=== PATIENT | female | born 1950 | race Two or more races ===

== ENCOUNTER 2017-11-18 08:48 | Outpatient (CLI) | payer OTHER ==
[~2017-11-18 08:48] MED LIST: CATAFLAM 50 MG PO; DEPO-MEDRO40 MG/1 ML IJ; DICLOFENAC POTA50 MG PO; NORVASC5 MG; SYNTHROID88 MCG
== END 2017-11-18 12:13 | disposition home or self-care (01) ==
LOC: SONOGRAMA 08:48
DX: E07.89 Other specified disorders of thyroid (principal); E89.0 Postprocedural hypothyroidism

== ENCOUNTER → 2018-12-01 | Outpatient (CLI) | payer OTHER | END | disposition home or self-care (01) | LOC: RAD 501 10:32 | DX: R05 Cough (principal); I11.9 Hypertensive heart disease without heart failure; E78.00 Pure hypercholesterolemia, unspecified; E03.8 Other specified hypothyroidism; Z12.83 Encounter for screening for malignant neoplasm of skin ==

== ENCOUNTER 2020-06-26 08:43 | Outpatient (CLI) | payer OTHER | END 2020-06-26 08:56 | disposition home or self-care (01) | LOC: NUCLEAR 08:43 | PROVIDERS: ATTEND Internal Medicine Cardiovascular Disease | DX: R09.89 Other specified symptoms and signs involving the circulatory and respiratory systems (principal); I65.21 Occlusion and stenosis of right carotid artery; I11.9 Hypertensive heart disease without heart failure; E03.8 Other specified hypothyroidism; E78.00 Pure hypercholesterolemia, unspecified; R01.1 Cardiac murmur, unspecified; I34.8 Other nonrheumatic mitral valve disorders ==

== ENCOUNTER 2020-08-15 10:51 | Outpatient (CLI) | payer OTHER | END 2020-08-15 10:58 | disposition home or self-care (01) | LOC: RAD 10:51 | PROVIDERS: ATTEND Physical Medicine & Rehabilitation | DX: M17.0 Bilateral primary osteoarthritis of knee (principal) ==

== ENCOUNTER 2020-12-21 08:15 | Outpatient (CLI) | payer OTHER | END 2020-12-21 08:27 | disposition home or self-care (01) | LOC: RAD 08:15 | PROVIDERS: ATTEND Physical Medicine & Rehabilitation | DX: M16.11 Unilateral primary osteoarthritis, right hip (principal) ==

== ENCOUNTER 2021-01-01 07:27 | Outpatient (CLI) | payer OTHER | END 2021-01-01 07:35 | disposition home or self-care (01) | LOC: SONOGRAMA 07:27 → MAMO-SONO 07:45 | PROVIDERS: ATTEND Internal Medicine Cardiovascular Disease | DX: E04.8 Other specified nontoxic goiter (principal); E03.8 Other specified hypothyroidism ==

== ENCOUNTER 2022-12-31 08:33 | Outpatient (CLI) | payer OTHER | END 2022-12-31 08:35 | disposition home or self-care (01) | LOC: NUCLEAR 08:33 | PROVIDERS: ATTEND Internal Medicine | DX: I11.9 Hypertensive heart disease without heart failure (principal); I65.29 Occlusion and stenosis of unspecified carotid artery; E78.00 Pure hypercholesterolemia, unspecified ==

== ENCOUNTER 2025-04-16 03:59 | Emergency (ER) | payer OTHER ==
[~2025-04-16] VITALS: Ht 170.2 cm; Wt 72.6 kg
[2025-04-16] MEDS ORDERED: 0.9 % SODIUM CHLORIDE 1,000 ML IV STA (06:01)
[2025-04-16] MEDS ORDERED: CIPROFLOXACIN IN 5 % DEXTROSE 400 MG/200 ML PIGGYBAG IV STA (06:02)
[2025-04-16 08:07] LABS: BASO % 0.4 % (0.1-1.2); EOS # 0.05 (0.04-0.54); EOS % 0.9 % (0.7-7.0); LYMPH # 0.67 (1.18-3.74); LYMPH % 12.7 % (19.3-53.1); MEAN PLATELET VOLUME 10.50 fl (9.4-12.4); MONO # 0.26 (0.24-0.82); MONO % 4.9 % (4.7-12.5); NEUT # 4.26 (1.56-6.13); NEUT % 80.9 % (34.0-71.1); RED CELL DISTRIBUTION WIDTH 13.2 % (11.6-14.4)
[2025-04-16 08:12] LABS: BUN CREA RATIO 27.0 (7.0-25.0); CREATININE SERUM 0.62 mg/dL (0.55-1.02); GFR 94.62; GLUCOSE FASTING 90.0 mg/dL (65-100); OSMOLALITY SERUM 286.0 MOSM/KG (275-295)
[2025-04-16 13:09] LABS: URINE APPEARANCE Turbid; URINE BILIRRUBIN Small (NEGATIVE); URINE BLOOD Large; URINE COLOR Red; URINE GLUCOSE Negative (NEGATIVE); URINE KETONE Negative (NEGATIVE); URINE LEUKOCYTE Moderate; URINE NITRATE Positive; URINE UROBILINOGEN 0.2 E.U./dl
[2025-04-16 13:13] LABS: URINE BACTERIA 279.5 uL (0.0-1933); URINE EPITHELIAL CELLS 14.1 uL (0.0-38.8); URINE WBC 119.5 uL (0.0-23.2)
[2025-04-16 13:33] LABS: URINE CAST 0.35 uL (0.0-1.40); URINE PROTEIN 100 (NEGATIVE); URINE RBC > 10558.9 uL (0.0-20.8); URINE YEAST NEGATIVE /hpf
[2025-04-16] MEDS ORDERED: CIPROFLOXACIN IN 5 % DEXTROSE 400 MG/200 ML PIGGYBAG IV ONE (20:00)
== END 2025-04-17 05:56 | disposition home or self-care (01) ==
LOC: ER 03:59
PROVIDERS: Emergency Medicine
DX: R33.9 Retention of urine, unspecified (principal); N30.01 Acute cystitis with hematuria
CPT/HCPCS: 36415; 51702; 96365; 96366; 99282; J0744 ×2; J7030

== ENCOUNTER 2025-05-13 08:30 | Inpatient (IN) | payer OTHER ==
[~2025-05-13] VITALS: Ht 170.2 cm; Wt 73.5 kg
[2025-05-13] MEDS ORDERED: ATACAND16 MG PO (09:35)
[2025-05-13] MEDS ORDERED: LIPITOR20 MG (09:36)
[2025-05-13 09:42] VITALS: BP 144/81
[2025-05-13 09:47] LABS: BASO % 0.9 % (0.1-1.2); EOS # 0.14 (0.04-0.54); EOS % 3.0 % (0.7-7.0); LYMPH # 0.97 (1.18-3.74); LYMPH % 21.1 % (19.3-53.1); MEAN PLATELET VOLUME 10.30 fl (9.4-12.4); MONO # 0.37 (0.24-0.82); MONO % 8.0 % (4.7-12.5); NEUT # 3.07 (1.56-6.13); NEUT % 66.8 % (34.0-71.1); RED CELL DISTRIBUTION WIDTH 13.9 % (11.6-14.4)
[2025-05-13 10:20] LABS: INR 1.0
[2025-05-13 10:26] LABS: URINE APPEARANCE Clear; URINE BILIRRUBIN Negative (NEGATIVE); URINE BLOOD Trace; URINE COLOR Yellow; URINE GLUCOSE Negative (NEGATIVE); URINE KETONE Trace (NEGATIVE); URINE LEUKOCYTE Moderate; URINE NITRATE Negative; URINE PROTEIN 30 (NEGATIVE); URINE UROBILINOGEN 0.2 E.U./dl
[2025-05-13 10:33] LABS: URINE BACTERIA 1593.6 uL (0.0-1933); URINE EPITHELIAL CELLS 88.1 uL (0.0-38.8); URINE RBC 19.6 uL (0.0-20.8); URINE WBC 360.9 uL (0.0-23.2)
[2025-05-13 10:41] LABS: ALT/SGPT 26.0 U/L (12-78); AST/SGOT 15.0 U/L (15-37); BILIRUBIN TOTAL 0.56 mg/dL (0.3-1.2); BUN CREA RATIO 29.0 (7.0-25.0); CREATININE SERUM 0.69 mg/dL (0.55-1.02); GFR 83.63; GLOBULINA 2.9 G/DL (2.4-3.5); GLUCOSE FASTING 89.0 mg/dL (65-100); OSMOLALITY SERUM 285.0 MOSM/KG (275-295)
[2025-05-13 10:46] LABS: COVID-19 AG NEGATIVE (NEGATIVE)
[2025-05-13 10:56] LABS: URINE CAST 0.29 uL (0.0-1.40)
[2025-05-13 10:58] LABS: TYPE CELLS RENAL TUBULAR
[2025-05-13 11:43] LABS: RH POSITIVE
[2025-05-19] MEDS ORDERED: CEFAZOLIN SODIUM 1,000 MG VIAL IV ONE (12:00)
[2025-05-19] MEDS ORDERED: METRONIDAZOLE/SODIUM CHLORIDE 500 MG/100 ML PIGGYBACK IV ONE (12:00)
[2025-05-19] MEDS ORDERED: ALPRAZOLAM0.5 MG (13:24)
[2025-05-19] MEDS ORDERED: OxyCODONE HCL 5 MG TABLET (ROXICODONE) PO PRN (14:45)
[2025-05-19] MEDS ORDERED: ONDANSETRON HCL 2 MG/ML VIAL IV PRN (14:45)
[2025-05-19] MEDS ORDERED: MORPHINE SULFATE 4 MG/ML CARTRIDGE IV PRN (14:45)
[2025-05-19] MEDS ORDERED: ENALAPRILAT DIHYDRATE 1.25 MG/ML VIAL IV PRN (14:45)
[2025-05-19] MEDS ORDERED: RINGERS SOLUTION,LACTATED 1,000 ML IV SCH (14:45)
[2025-05-19] MEDS ORDERED: MORPHINE SULFATE 4 MG/ML VIAL IV ONE ×2 (15:00)
[2025-05-19] MEDS ORDERED: SUGAMMADEX SODIUM 200 MG/2 ML VIAL IV ONE (15:30)
[2025-05-19] MEDS ORDERED: VISTASEAL DUAL APPICATOR 1 EACH APPL TOP ONE (15:30)
[2025-05-19] MEDS ORDERED: THROMBIN,HU/FIBRINOGEN/CALCIUM 10 ML SYRINGE TOP ONE (15:30)
[2025-05-19] MEDS ORDERED: GABAPENTIN 300 MG CAPSULE PO SCH (17:00)
[2025-05-19] MEDS ORDERED: SIMETHICONE 125 MG CAPSULE PO SCH (17:00)
[2025-05-19] MEDS ORDERED: CEFAZOLIN SODIUM 1,000 MG VIAL IV SCH (17:00)
[2025-05-19] MEDS ORDERED: METRONIDAZOLE/SODIUM CHLORIDE 500 MG/100 ML PIGGYBACK IV SCH (17:00)
[2025-05-19 17:06] LABS: BASO % 0.5 % (0.1-1.2); EOS # 0.07 (0.04-0.54); EOS % 0.8 % (0.7-7.0); LYMPH # 0.65 (1.18-3.74); LYMPH % 7.4 % (19.3-53.1); MEAN PLATELET VOLUME 11.10 fl (9.4-12.4); MONO # 0.25 (0.24-0.82); MONO % 2.9 % (4.7-12.5); NEUT # 7.72 (1.56-6.13); NEUT % 88.1 % (34.0-71.1); RED CELL DISTRIBUTION WIDTH 13.7 % (11.6-14.4)
[2025-05-19 17:27] LABS: BUN CREA RATIO 25.0 (7.0-25.0); CREATININE SERUM 0.56 mg/dL (0.55-1.02); GFR 106.41; GLUCOSE FASTING 141.0 mg/dL (65-100); OSMOLALITY SERUM 284.0 MOSM/KG (275-295)
[2025-05-19] MEDS ORDERED: MORPHINE SULFATE 2 MG/ML CARTRIDGE IV ONE (19:35)
[2025-05-19 20:00] VITALS: BP 148/80; O2SAT 97
[2025-05-19] MEDS ORDERED: METOCLOPRAMIDE HCL 5 MG/ML VIAL IV SCH (21:00)
[2025-05-19] MEDS ORDERED: DOCUSATE SODIUM 100MG CAP PO SCH (21:00)
[2025-05-19] MEDS ORDERED: FAMOTIDINE/PF 20 MG/2 ML VIAL IV PUSH SCH (21:00)
[2025-05-20 01:58] VITALS: BP 109/60; O2SAT 96
[2025-05-20] MEDS ORDERED: LEVOTHYROXINE SODIUM 88 MCG TABLET PO SCH (06:00)
[2025-05-20 07:05] LABS: BASO % 0.3 % (0.1-1.2); EOS # 0.01 (0.04-0.54); EOS % 0.1 % (0.7-7.0); LYMPH # 0.69 (1.18-3.74); LYMPH % 7.5 % (19.3-53.1); MEAN PLATELET VOLUME 10.80 fl (9.4-12.4); MONO # 0.57 (0.24-0.82); MONO % 6.2 % (4.7-12.5); NEUT # 7.92 (1.56-6.13); NEUT % 85.6 % (34.0-71.1); RED CELL DISTRIBUTION WIDTH 13.7 % (11.6-14.4)
[2025-05-20 07:44] LABS: BUN CREA RATIO 21.0 (7.0-25.0); CREATININE SERUM 0.52 mg/dL (0.55-1.02); GFR 115.91; GLUCOSE FASTING 89.0 mg/dL (65-100); OSMOLALITY SERUM 282.0 MOSM/KG (275-295)
[2025-05-20 08:00] VITALS: BP 125/73; O2SAT 96
[2025-05-20] MEDS ORDERED: CELECOXIB 200 MG CAPSULE PO SCH (09:00)
[2025-05-20] MEDS ORDERED: ENOXAPARIN SODIUM 40 MG/0.4 ML SYRINGE SUBCUTANEO SCH (09:00)
[2025-05-20] MEDS ORDERED: CANDESARTAN CILEXETIL 16 MG TABLET PO SCH (09:00)
[2025-05-20 16:00] VITALS: BP 152/78; O2SAT 97
== END 2025-05-20 15:40 | disposition home or self-care (01) | DRG 742 ==
LOC: SURH 05-19 08:30 → O/R 05-19 10:34 → SURH 05-19 10:34
PROVIDERS: ADMIT Obstetrics & Gynecology Gynecologic Oncology; ATTEND Obstetrics & Gynecology Gynecologic Oncology
PROC: 0UT74ZZ Resection of Bilateral Fallopian Tubes, Percutaneous Endoscopic Approach (ICD-10-PCS; 2025-05-19)
PROC: 0UT24ZZ Resection of Bilateral Ovaries, Percutaneous Endoscopic Approach (ICD-10-PCS; 2025-05-19)
PROC: 07BC4ZZ Excision of Pelvis Lymphatic, Percutaneous Endoscopic Approach (ICD-10-PCS; 2025-05-19)
PROC: 0TN74ZZ Release Left Ureter, Percutaneous Endoscopic Approach (ICD-10-PCS; 2025-05-19)
PROC: 0TN64ZZ Release Right Ureter, Percutaneous Endoscopic Approach (ICD-10-PCS; 2025-05-19)
PROC: 0DQN4ZZ Repair Sigmoid Colon, Percutaneous Endoscopic Approach (ICD-10-PCS; 2025-05-19)
PROC: 8E0W4CZ Robotic Assisted Procedure of Trunk Region, Percutaneous Endoscopic Approach (ICD-10-PCS; 2025-05-19)
PROC: 0UT94ZZ Resection of Uterus, Percutaneous Endoscopic Approach (ICD-10-PCS; principal; 2025-05-19 15:45)
DX: N84.0 Polyp of corpus uteri (principal); K91.72 Accidental puncture and laceration of a digestive system organ or structure during other procedure; N80.03 Adenomyosis of the uterus; N72 Inflammatory disease of cervix uteri; D36.0 Benign neoplasm of lymph nodes; D27.0 Benign neoplasm of right ovary; K66.0 Peritoneal adhesions (postprocedural) (postinfection)
CPT/HCPCS: 58548; 50715; 44604; S2900

== ENCOUNTER 2025-05-23 10:54 | Outpatient (CLI) | payer OTHER ==
[~2025-05-23 10:54] MED LIST changes: +ALPRAZOLAM0.5 MG; +ATACAND16 MG PO; +LIPITOR20 MG
[2025-05-25 05:09] LABS: hav igm Negative (Negative); hep b c Negative (Negative); hep b s ag Negative (Negative)
== END 2025-05-23 23:00 | disposition home or self-care (01) ==
LOC: LAB 10:54
PROVIDERS: ATTEND Obstetrics & Gynecology Gynecologic Oncology
DX: Z00.00 Encounter for general adult medical examination without abnormal findings (principal)